=== PATIENT | female | born 1965 | race Caucasian/White ===

== ENCOUNTER → 2017-09-27 | Outpatient (CLI) | payer OTHER ==
--- NOTE | 2017-09-27 16:40 | WOMENS IMAGING REPORT ---
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 TECHNIQUE: Dynamic and static corado-scale images acquired of the thyroid gland. Selected additional c olor/power Doppler images recorded. All images stored to PACS. LIMITATIONS: None. FINDINGS: Right lobe thyroid is 3.3 x 1.4 x 1.2 cm in size. In the anterior aspect of the right mid pole thyroid, a 12 x 8 mm nodule is present with color flow and internal calcifications. Fine-needle aspirate of this nodule should be considered. Left lobe thyroid is 4.7 x 2.5 x 2.5 cm size. In the mid pole left lobe thyroid, a complex cystic an d solid mass is present, measuring about 2.5 x 2 x 2.5 cm size. No calcifications. No significant i nternal color flow. In the lower pole left lobe thyroid, a 12 mm x 11 mm hypoechoic mixed cystic and solid nodule is present without worrisome calcifications. In the midpole gland, a 7 mm x 8 mm nodul e with internal color flow is present. No calcifications. Normal thickness at the thyroid isthmus. No midline thyroid nodules IMPRESSION: There are multiple bilateral thyroid cystic and solid nodules. On the right side, a 12 x 8 mm nodule is present with color flow and calcifications, fine-needle aspirate of this nodule shou ld be considered. TECHNICAL DOCUMENTATION: JOB ID: [id number] [employer]- All Rights Reserved Reading location - IP/workstation name: [facility]
== END ==
LOC: WI 07:49
PROVIDERS: ATTEND Family Medicine
DX: E04.1 Nontoxic single thyroid nodule (principal)
CPT/HCPCS: 76536